=== PATIENT | female | born 1960 | race African-American/Black ===

== ENCOUNTER 2017-02-17 22:43 | Emergency (ER) | payer MEDICARE ==
[~2017-02-17] VITALS: Ht 162.6 cm; Wt 49.9 kg
[2017-02-17 23:35] LABS: Basophils # (auto) 0.1 uL; Basophils % (auto) 0.8 % (0.0-2.0); CONDITION Y; Eosinophils # (auto) 0.1 uL; Hematocrit 34.6 % (36.0-46.0); Hemoglobin 11.6 g/dL (12.2-16.2); Lymphocytes # (auto) 2.4 uL; Lymphocytes % (auto) 35.8 % (10.0-50.0); Mean Corpuscular Hemoglobin 28.2 pg (28.0-32.0); Mean Corpuscular Hgb Conc. 33.5 g/dL (32.0-36.0); Mean Platelet Volume 7.2 fL (7.4-10.4); Monocytes # (auto) 0.3 uL; Monocytes % (auto) 5.3 % (0.0-12.0); Neutrophils # (auto) 3.8 uL; Neutrophils % (auto) 57.1 % (37.0-80.0); Platelet Count (auto) 433 10^3/uL (140-450); Red Cell Distribution Width 13.3 % (11.6-16.0); White Blood Cell 6.6 10^3/uL (4.4-10.8)
[2017-02-17 23:54] LABS: Albumin 3.7 g/dL (3.4-5.0); Amylase 145 U/L (25-115); Anion Gap 10 (5-15); Aspartate Aminotransferase 19 U/L (15-37); BUN/Creatinine Ratio 17.7; Blood Urea Nitrogen 17 mg/dL (7-18); Calcium 9.9 mg/dL (8.5-10.1); Carbon Dioxide 25 mmol/L (21-32); Chloride 104 mmol/L (98-107); GFR African American 78 mL/min; GFR Non-African American 64 mL/min; Glucose 148 mg/dL (74-106); Magnesium 1.7 mg/dL (1.6-2.6); Potassium 3.6 mmol/L (3.5-5.1); Sodium 139 mmol/L (136-145)
[2017-02-17 23:56] LABS: Lactic Acid w/Reflex 2.3 mmol/L (0.4-2.0)
[2017-02-17 23:57] LABS: INR 0.95 (0.9-1.15); Prothrombin Time 10.3 sec (9.37-12.3)
[2017-02-17 23:59] LABS: Alkaline Phosphatase 74 U/L (45-117); Bilirubin, Total 0.3 mg/dL (0.2-1.0); Total Protein 9.7 g/dL (6.4-8.2)
[2017-02-18] MEDS ORDERED: NALBUPHINE HCL 10 MG/1ml INJECTION IV ONE
[2017-02-18 00:03] LABS: REFLEX LACTIC ACID YES OR NO YES
[2017-02-18] MEDS ORDERED: ONDANSETRON HCL 4 MG/2 ML VIAL IV ONE ×2 (00:15→00:30)
[2017-02-18] MEDS ORDERED: MORPHINE SULF INJ 2 MG/ML SYRINGE 1ML IV ONE (00:15)
[2017-02-18] MEDS ORDERED: SODIUM CHLORIDE 0.9% 1,000 ML IV ONE (00:30)
[2017-02-18] MEDS ORDERED: HYDROmorphone HCL 2 MG/ML VL IV ONE (00:30)
[2017-02-18 00:36] LABS: Urine Bilirubin Negative (Negative); Urine Blood Negative /uL (Negative); Urine Color Yellow (Yellow); Urine Glucose 3+ mg/dL (Normal); Urine Ketone Negative (Negative); Urine Nitrite Negative (Negative); Urine RBC 1 /hpf (0 - 4); Urine Squamous Epithelial Cell FEW /hpf (<5); Urine Urobilinogen Normal (Negative); Urine pH 8.5 (5.0-8.0)
[2017-02-18] MEDS ORDERED: LORazepam 2MG/ML-1ML VIAL IV ONE (01:30)
[2017-02-18 03:38] VITALS: BP 132/89
== END 2017-02-18 03:56 | disposition home or self-care (01) ==
LOC: ER 22:46
DX: K29.70 Gastritis, unspecified, without bleeding (principal); I10 Essential (primary) hypertension; E11.9 Type 2 diabetes mellitus without complications; F17.210 Nicotine dependence, cigarettes, uncomplicated
CPT/HCPCS: 36415; 51702; 71010; 74176; 80053; 80307; 81001; 82150; 83605; 83690; 83735; 84484; 85025; 85610; 85730; 87040; 93005; 96361; 96374; 96375; 99285; J1170; J2060; J2270; J2300; J2405; J7030

== ENCOUNTER 2017-04-10 23:34 | Inpatient (IN) | payer MEDICARE ==
[~2017-04-10] VITALS: Ht 162.6 cm; Wt 49.4 kg
[2017-04-11 00:25] LABS: Basophils # (auto) 0.1 uL; Basophils % (auto) 1.1 % (0.0-2.0); Eosinophils # (auto) 0 uL; Hematocrit 37.7 % (36.0-46.0); Hemoglobin 12.5 g/dL (12.2-16.2); Lymphocytes # (auto) 1.4 uL; Lymphocytes % (auto) 25.7 % (10.0-50.0); Mean Corpuscular Hgb Conc. 33.2 g/dL (32.0-36.0); Mean Corpuscular Volume 84.1 fL (80.0-100.0); Mean Platelet Volume 7.1 fL (6.9-10.8); Monocytes # (auto) 0.1 uL; Monocytes % (auto) 1.9 % (0.0-12.0); Neutrophils % (auto) 71.3 % (37.0-80.0); Nucleated Red Blood Cells % 0.1 %; Platelet Count (auto) 357 10^3/uL (140-450); Red Cell Distribution Width 13.6 % (11.8-14.3); White Blood Cell 5.6 10^3/uL (4.4-10.8)
[2017-04-11 00:42] LABS: Albumin 3.7 g/dL (3.4-5.0); BUN/Creatinine Ratio 20.6; Calcium 9.8 mg/dL (8.5-10.1); Magnesium 2.1 mg/dL (1.6-2.6)
[2017-04-11 00:45] LABS: Bilirubin, Total 0.3 mg/dL (0.2-1.0); Total Protein 9.5 g/dL (6.4-8.2)
[2017-04-11] MEDS ORDERED: NALBUPHINE HCL 10 MG/1ml INJECTION IV ONE (04:30)
[2017-04-11] MEDS ORDERED: ONDANSETRON HCL 4 MG/2 ML VIAL IV ONE (04:30)
[2017-04-11] MEDS ORDERED: DOCUSATE SOD 100 MG CAP PO PRN (06:15)
[2017-04-11] MEDS ORDERED: SODIUM CHLORIDE 0.9% 1,000 ML IV ONE (06:15)
[2017-04-11] MEDS ORDERED: PANTOPRAZOLE 40 MG/10 ML VIAL IV ONE (06:15)
[2017-04-11] MEDS ORDERED: DEXTROSE (50%) 50ML SYRG IV PRN (06:15)
[2017-04-11] MEDS: SODIUM CHLORIDE 0.9% 1,000 ML IV SCH ×2 (06:30→17:44)
[2017-04-11] MEDS: LISINOPRIL 10 MG TAB PO SCH ×2 (06:41→10:47)
[2017-04-11 07:15] VITALS: BP 161/93
[2017-04-11] MEDS: ACETAMINOPHEN 325 MG TAB PO PRN (07:27)
[2017-04-11] MEDS ORDERED: FAMO-12 (07:31)
[2017-04-11] MEDS ORDERED: DICY20TA66 (07:31)
[2017-04-11] MEDS ORDERED: LISI10TA6 (07:31)
[2017-04-11] MEDS ORDERED: SIMV-8 (07:31)
[2017-04-11] MEDS ORDERED: GLIP-116 (07:31)
[2017-04-11] MEDS ORDERED: METF-372 (07:31)
[2017-04-11] MEDS ORDERED: LABETALOL HCL 5 MG/ML 4ML SYRINGE IV PRN (08:30)
[2017-04-11] MEDS ORDERED: INSULIN DETEMIR(LEVEMIR) 1unit/0.01ml Soln (100units/ml) SC ONE (10:00)
[2017-04-11] MEDS ORDERED: glipiZIDE 5 MG TAB PO ONE (10:00)
[2017-04-11] MEDS ORDERED: cefTRIAXone 1GM/50ML D5W 50 ML IV ONE (10:00)
[2017-04-11] MEDS: ENOXAPARIN SOD 40 MG/0.4 ML SYRINGE SC SCH (10:47)
[2017-04-11 10:57] VITALS: BP 154/93
[2017-04-11 11:02] LABS: Urine Bilirubin Negative (Negative); Urine Blood Negative /uL (Negative); Urine Color Yellow (Yellow); Urine Glucose 4+ mg/dL (Normal); Urine Ketone 2+ (Negative); Urine Nitrite POSITIVE (Negative); Urine RBC 4 /hpf (0 - 4); Urine Squamous Epithelial Cell FEW /hpf (<5); Urine Urobilinogen Normal (Negative); Urine pH 5.5 (5.0-8.0)
[2017-04-11] MEDS: InsuLIN REG 1unit/0.01ml Soln (100units/ml) SC SCH ×2 (13:31→17:44)
[2017-04-11] MEDS: ACCU-CHEK COMFORT CURVE STRIP VI SCH ×2 (13:31→17:43)
[2017-04-11 16:17] VITALS: BP 117/78
[2017-04-11 20:00] VITALS: BP 149/88
[2017-04-11] MEDS: ONDANSETRON HCL 4 MG/2 ML VIAL IV PRN (21:02)
[2017-04-11] MEDS: MORPHINE SULF INJ 2 MG/ML SYRINGE 1ML IV PRN (21:08)
[2017-04-12] MEDS: ACCU-CHEK COMFORT CURVE STRIP VI SCH ×4 (00:27→17:30)
[2017-04-12] MEDS: ONDANSETRON HCL 4 MG/2 ML VIAL IV PRN (02:40)
[2017-04-12] MEDS: MORPHINE SULF INJ 2 MG/ML SYRINGE 1ML IV PRN ×2 (04:29→17:41)
[2017-04-12 05:29] VITALS: BP 171/104
[2017-04-12] MEDS: InsuLIN REG 1unit/0.01ml Soln (100units/ml) SC SCH ×4 (06:00→17:31)
[2017-04-12] MEDS: ACETAMINOPHEN 325 MG TAB PO PRN (06:17)
[2017-04-12 06:24] LABS: Basophils # (auto) 0 uL; Basophils % (auto) 0.6 % (0.0-2.0); Eosinophils # (auto) 0 uL; Eosinophils % (auto) 0.1 % (0.0-7.0); Hematocrit 35.3 % (36.0-46.0); Lymphocytes # (auto) 2.7 uL; Lymphocytes % (auto) 35.6 % (10.0-50.0); Mean Corpuscular Hemoglobin 28.5 pg (28.0-32.0); Mean Corpuscular Hgb Conc. 34.1 g/dL (32.0-36.0); Mean Corpuscular Volume 83.4 fL (80.0-100.0); Mean Platelet Volume 7.1 fL (6.9-10.8); Monocytes # (auto) 0.4 uL; Monocytes % (auto) 5.4 % (0.0-12.0); Neutrophils # (auto) 4.4 uL; Neutrophils % (auto) 58.3 % (37.0-80.0); Platelet Count (auto) 366 10^3/uL (140-450); Red Cell Distribution Width 13.3 % (11.8-14.3); White Blood Cell 7.5 10^3/uL (4.4-10.8)
[2017-04-12 06:45] LABS: Albumin 3.4 g/dL (3.4-5.0); Calcium 9.1 mg/dL (8.5-10.1); Potassium 3.3 mmol/L (3.5-5.1)
[2017-04-12 06:47] LABS: Bilirubin, Total 0.3 mg/dL (0.2-1.0); Total Protein 8.6 g/dL (6.4-8.2)
[2017-04-12] MEDS: INSULIN DETEMIR(LEVEMIR) 1unit/0.01ml Soln (100units/ml) SC SCH (07:00)
[2017-04-12] MEDS: glipiZIDE 5 MG TAB PO SCH (07:00)
[2017-04-12] MEDS ORDERED: FAMOTIDINE 20 MG TAB PO ONE (08:30)
[2017-04-12] MEDS: SODIUM CHLORIDE 0.9% 1,000 ML IV SCH ×2 (08:35→22:30)
[2017-04-12] MEDS: cefTRIAXone 1GM/50ML D5W 50 ML IV SCH (09:02)
[2017-04-12 09:53] VITALS: BP 158/91
[2017-04-12] MEDS: ENOXAPARIN SOD 40 MG/0.4 ML SYRINGE SC SCH (10:00)
[2017-04-12] MEDS: LISINOPRIL 10 MG TAB PO SCH (10:17)
[2017-04-12] MEDS: PANTOPRAZOLE 40 MG/10 ML VIAL IV SCH (10:18)
[2017-04-12] MEDS: HYDROcodone-ACET 5/325MG TAB PO PRN (11:48)
[2017-04-12 12:14] VITALS: BP 165/88
[2017-04-12 16:12] VITALS: BP 185/117
[2017-04-12] MEDS: MILK OF MAGNESIA 30ML SUSP PO PRN (17:40)
[2017-04-12] MEDS: NICOTINE 21MG/24 HR TOPICAL PATCH TD SCH (17:41)
[2017-04-12] MEDS: Boost Glucose Control 8 Ounces PO SCH (17:42)
[2017-04-12] MEDS: PROMETHAZINE HCL 25 MG/ML 1ML IV PRN (20:32)
[2017-04-12] MEDS: TEMAZEPAM 15 MG CAP PO PRN (20:42)
[2017-04-12 22:00] VITALS: BP 173/103
[2017-04-13] MEDS: ACCU-CHEK COMFORT CURVE STRIP VI SCH ×4 (00:21→17:23)
[2017-04-13] MEDS: InsuLIN REG 1unit/0.01ml Soln (100units/ml) SC SCH ×4 (00:25→17:23)
[2017-04-13 05:00] VITALS: BP 146/102
[2017-04-13] MEDS: MORPHINE SULF INJ 2 MG/ML SYRINGE 1ML IV PRN ×4 (06:15→20:09)
[2017-04-13 06:25] LABS: INR 0.95 (0.9-1.15); Prothrombin Time 10.4 sec (9.37-12.3)
[2017-04-13 06:30] LABS: Basophils # (auto) 0.1 uL; Basophils % (auto) 0.7 % (0.0-2.0); Eosinophils # (auto) 0 uL; Eosinophils % (auto) 0.6 % (0.0-7.0); Hemoglobin 12.2 g/dL (12.2-16.2); Lymphocytes # (auto) 3.7 uL; Lymphocytes % (auto) 45.9 % (10.0-50.0); Mean Corpuscular Hemoglobin 28.6 pg (28.0-32.0); Mean Corpuscular Volume 84.2 fL (80.0-100.0); Monocytes # (auto) 0.8 uL; Monocytes % (auto) 9.6 % (0.0-12.0); Neutrophils # (auto) 3.5 uL; Neutrophils % (auto) 43.2 % (37.0-80.0); Nucleated Red Blood Cells % 0.1 %; Platelet Count (auto) 378 10^3/uL (140-450); Red Cell Distribution Width 13.4 % (11.8-14.3)
[2017-04-13 06:37] LABS: Albumin 3.1 g/dL (3.4-5.0); Calcium 8.7 mg/dL (8.5-10.1); Magnesium 2.7 mg/dL (1.6-2.6); Potassium 3.6 mmol/L (3.5-5.1)
[2017-04-13 06:39] LABS: BUN/Creatinine Ratio 22.7
[2017-04-13 06:41] LABS: Bilirubin, Total 0.4 mg/dL (0.2-1.0); Total Protein 7.7 g/dL (6.4-8.2)
[2017-04-13] MEDS: INSULIN DETEMIR(LEVEMIR) 1unit/0.01ml Soln (100units/ml) SC SCH (06:58)
[2017-04-13] MEDS: PROMETHAZINE HCL 25 MG/ML 1ML IV PRN ×2 (06:59→14:50)
[2017-04-13] MEDS: glipiZIDE 5 MG TAB PO SCH (07:00)
[2017-04-13] MEDS: cefTRIAXone 1GM/50ML D5W 50 ML IV SCH (09:43)
[2017-04-13] MEDS: PANTOPRAZOLE 40 MG/10 ML VIAL IV SCH ×2 (09:45→21:27)
[2017-04-13] MEDS: NICOTINE 21MG/24 HR TOPICAL PATCH TD SCH (09:45)
[2017-04-13] MEDS: LISINOPRIL 10 MG TAB PO SCH (09:46)
[2017-04-13] MEDS: FAMOTIDINE 20 MG TAB PO SCH (09:46)
[2017-04-13] MEDS: Boost Glucose Control 8 Ounces PO SCH ×3 (09:46→17:24)
[2017-04-13] MEDS: ENOXAPARIN SOD 40 MG/0.4 ML SYRINGE SC SCH (09:47)
[2017-04-13 10:10] VITALS: BP 153/97
[2017-04-13] MEDS: SODIUM CHLORIDE 0.9% 1,000 ML IV SCH (10:52)
[2017-04-13 12:18] VITALS: BP 137/89
[2017-04-13 16:14] VITALS: BP 145/96
[2017-04-13] MEDS: MILK OF MAGNESIA 30ML SUSP PO PRN (17:12)
[2017-04-13 19:30] VITALS: BP 164/110
[2017-04-13] MEDS: ONDANSETRON HCL 4 MG/2 ML VIAL IV PRN (20:44)
[2017-04-13] MEDS: TEMAZEPAM 15 MG CAP PO PRN (21:28)
[2017-04-13 22:00] VITALS: BP 164/110
[2017-04-14] MEDS: SODIUM CHLORIDE 0.9% 1,000 ML IV SCH ×2 (00:55→14:44)
[2017-04-14] MEDS: InsuLIN REG 1unit/0.01ml Soln (100units/ml) SC SCH ×5 (01:05→23:25)
[2017-04-14] MEDS: MORPHINE SULF INJ 2 MG/ML SYRINGE 1ML IV PRN ×4 (03:18→23:24)
[2017-04-14 05:00] VITALS: BP 141/96
[2017-04-14 05:59] LABS: Basophils # (auto) 0 uL; Basophils % (auto) 0.5 % (0.0-2.0); Eosinophils # (auto) 0.1 uL; Eosinophils % (auto) 0.9 % (0.0-7.0); Hematocrit 37.2 % (36.0-46.0); Hemoglobin 12.3 g/dL (12.2-16.2); Lymphocytes # (auto) 3.7 uL; Mean Corpuscular Hemoglobin 28.1 pg (28.0-32.0); Mean Corpuscular Hgb Conc. 33.1 g/dL (32.0-36.0); Mean Corpuscular Volume 84.8 fL (80.0-100.0); Mean Platelet Volume 6.7 fL (6.9-10.8); Monocytes # (auto) 0.8 uL; Monocytes % (auto) 9.5 % (0.0-12.0); Neutrophils # (auto) 3.3 uL; Neutrophils % (auto) 42.1 % (37.0-80.0); Nucleated Red Blood Cells % 0.1 %; Platelet Count (auto) 366 10^3/uL (140-450); Red Cell Distribution Width 13.3 % (11.8-14.3); White Blood Cell 7.9 10^3/uL (4.4-10.8)
[2017-04-14] MEDS: ACCU-CHEK COMFORT CURVE STRIP VI SCH ×5 (06:00→23:25)
[2017-04-14] MEDS: HYDROcodone-ACET 5/325MG TAB PO PRN (06:00)
[2017-04-14 06:07] LABS: INR 0.96 (0.9-1.15); Prothrombin Time 10.5 sec (9.37-12.3)
[2017-04-14] MEDS: glipiZIDE 5 MG TAB PO SCH (06:11)
[2017-04-14] MEDS: INSULIN DETEMIR(LEVEMIR) 1unit/0.01ml Soln (100units/ml) SC SCH (06:11)
[2017-04-14 06:21] LABS: Potassium 3.8 mmol/L (3.5-5.1)
[2017-04-14 06:27] LABS: Bilirubin, Total 0.3 mg/dL (0.2-1.0); Calcium 8.5 mg/dL (8.5-10.1); Magnesium 2.4 mg/dL (1.6-2.6); Total Protein 7.5 g/dL (6.4-8.2)
[2017-04-14] MEDS: ONDANSETRON HCL 4 MG/2 ML VIAL IV PRN (06:30)
[2017-04-14] MEDS: Boost Glucose Control 8 Ounces PO SCH ×3 (08:00→18:13)
[2017-04-14] MEDS: cefTRIAXone 1GM/50ML D5W 50 ML IV SCH (09:17)
[2017-04-14] MEDS: PANTOPRAZOLE 40 MG/10 ML VIAL IV SCH (09:17)
[2017-04-14] MEDS: LISINOPRIL 10 MG TAB PO SCH (09:18)
[2017-04-14] MEDS: FAMOTIDINE 20 MG TAB PO SCH (09:18)
[2017-04-14] MEDS: ENOXAPARIN SOD 40 MG/0.4 ML SYRINGE SC SCH (09:18)
[2017-04-14] MEDS: NICOTINE 21MG/24 HR TOPICAL PATCH TD SCH (09:18)
[2017-04-14] MEDS ORDERED: MORP30TA39 PO (09:34)
[2017-04-14] MEDS ORDERED: CYCLOBENZAPRINE HCL 10 MG TAB PO PRN (11:15)
[2017-04-14] MEDS ORDERED: MORPHINE SULF INJ 2 MG/ML SYRINGE 1ML IV ONE (11:15)
[2017-04-14 11:20] VITALS: BP 130/105
[2017-04-14] MEDS ORDERED: MORPHINE SULFATE 10 MG/5 ML ORAL SOLN PO SCH (12:00)
[2017-04-14] MEDS ORDERED: PROPOFOL 10 MG/ML 20 ML IV ONE (12:39)
[2017-04-14] MEDS ORDERED: LIDOCAINE HCL 2 %PF INJ 10ML AMP IJ ONE (12:39)
[2017-04-14] MEDS ORDERED: ONDANSETRON HCL 4 MG/2 ML VIAL IV ONE (13:00)
[2017-04-14] MEDS: hydrALAZINE HCL 20 MG/ML VL ONE ×5 (13:22→13:50)
[2017-04-14] MEDS: HYDROmorphone HCL 2 MG/ML VL IV PRN ×2 (13:38→13:41)
[2017-04-14] MEDS ORDERED: SUC1LQ PO (14:28)
[2017-04-14] MEDS ORDERED: PANT40T PO (14:28)
[2017-04-14 17:38] VITALS: BP 114/52
[2017-04-14] MEDS ORDERED: MORPHINE SULF 30 mg ER tab PO SCH ×3 (18:00)
[2017-04-14] MEDS: SUCRALFATE 1 GM/10 ML ORAL SUSP PO SCH (18:14)
[2017-04-14] MEDS: MORPHINE SULFATE 10 MG/5 ML ORAL SOLN PO SCH ×2 (18:45→22:00)
[2017-04-14 22:00] VITALS: BP 94/53
[2017-04-14] MEDS: PANTOPRAZOLE 40 MG TAB PO SCH (22:03)
[2017-04-14] MEDS: TEMAZEPAM 15 MG CAP PO PRN (22:05)
[2017-04-15] VITALS (7 sets, daily range): BP systolic 85–167; BP diastolic 57–83
[2017-04-15] MEDS: SODIUM CHLORIDE 0.9% 1,000 ML IV SCH ×2 (03:20→16:55)
[2017-04-15] MEDS: MORPHINE SULFATE 10 MG/5 ML ORAL SOLN PO SCH ×4 (05:48→22:35)
[2017-04-15] MEDS: ACCU-CHEK COMFORT CURVE STRIP VI SCH ×3 (05:49→18:00)
[2017-04-15] MEDS: InsuLIN REG 1unit/0.01ml Soln (100units/ml) SC SCH ×3 (05:53→18:00)
[2017-04-15] MEDS: MORPHINE SULF INJ 2 MG/ML SYRINGE 1ML IV PRN ×3 (06:07→20:15)
[2017-04-15] MEDS: SUCRALFATE 1 GM/10 ML ORAL SUSP PO SCH ×3 (06:35→18:01)
[2017-04-15] MEDS: INSULIN DETEMIR(LEVEMIR) 1unit/0.01ml Soln (100units/ml) SC SCH (06:35)
[2017-04-15] MEDS: glipiZIDE 5 MG TAB PO SCH (06:35)
[2017-04-15] MEDS: Boost Glucose Control 8 Ounces PO SCH ×3 (08:18→18:01)
[2017-04-15] MEDS: cefTRIAXone 1GM/50ML D5W 50 ML IV SCH (09:52)
[2017-04-15] MEDS: PANTOPRAZOLE 40 MG TAB PO SCH ×2 (09:52→22:34)
[2017-04-15] MEDS: NICOTINE 21MG/24 HR TOPICAL PATCH TD SCH (10:00)
[2017-04-15] MEDS: LISINOPRIL 10 MG TAB PO SCH (10:00)
[2017-04-15] MEDS: ENOXAPARIN SOD 40 MG/0.4 ML SYRINGE SC SCH (10:00)
[2017-04-15] MEDS ORDERED: FLUCONAZOLE 200MG/100ML 100 ML IV ONE (12:30)
[2017-04-15] MEDS: ONDANSETRON HCL 4 MG/2 ML VIAL IV PRN (20:19)
[2017-04-15] MEDS: TEMAZEPAM 15 MG CAP PO PRN (23:34)
[2017-04-16] MEDS: ACCU-CHEK COMFORT CURVE STRIP VI SCH ×5 (00:03→23:42)
[2017-04-16 04:55] VITALS: BP 162/94
[2017-04-16] MEDS ORDERED: LABETALOL HCL 5 MG/ML 4ML SYRINGE IV ONE (05:45)
[2017-04-16] MEDS: MORPHINE SULFATE 10 MG/5 ML ORAL SOLN PO SCH ×4 (06:00→22:55)
[2017-04-16] MEDS: InsuLIN REG 1unit/0.01ml Soln (100units/ml) SC SCH ×5 (06:11→23:43)
[2017-04-16] MEDS: MILK OF MAGNESIA 30ML SUSP PO PRN (06:13)
[2017-04-16] MEDS: ONDANSETRON HCL 4 MG/2 ML VIAL IV PRN (06:28)
[2017-04-16] MEDS: MORPHINE SULF INJ 2 MG/ML SYRINGE 1ML IV PRN (06:28)
[2017-04-16] MEDS: glipiZIDE 5 MG TAB PO SCH (06:29)
[2017-04-16] MEDS: INSULIN DETEMIR(LEVEMIR) 1unit/0.01ml Soln (100units/ml) SC SCH (06:29)
[2017-04-16] MEDS: SUCRALFATE 1 GM/10 ML ORAL SUSP PO SCH ×3 (06:29→18:40)
[2017-04-16] MEDS: SODIUM CHLORIDE 0.9% 1,000 ML IV SCH ×2 (06:30→22:54)
[2017-04-16] MEDS: Boost Glucose Control 8 Ounces PO SCH ×3 (08:00→18:00)
[2017-04-16 09:00] VITALS: BP 100/65
[2017-04-16] MEDS: NICOTINE 21MG/24 HR TOPICAL PATCH TD SCH (09:46)
[2017-04-16] MEDS: cefTRIAXone 1GM/50ML D5W 50 ML IV SCH (09:47)
[2017-04-16] MEDS: LISINOPRIL 10 MG TAB PO SCH (09:50)
[2017-04-16] MEDS: PANTOPRAZOLE 40 MG TAB PO SCH ×2 (09:50→22:53)
[2017-04-16] MEDS: ENOXAPARIN SOD 40 MG/0.4 ML SYRINGE SC SCH (09:50)
[2017-04-16] MEDS: FLUCONAZOLE 200MG/100ML 100 ML IV SCH (12:00)
[2017-04-16 13:00] VITALS: BP 76/51
[2017-04-16 17:00] VITALS: BP_DIAS 62
[2017-04-16 22:00] VITALS: BP 148/93
[2017-04-17 05:00] VITALS: BP 110/70
[2017-04-17] MEDS: ACCU-CHEK COMFORT CURVE STRIP VI SCH ×3 (06:00→17:43)
[2017-04-17] MEDS: InsuLIN REG 1unit/0.01ml Soln (100units/ml) SC SCH ×3 (06:00→17:43)
[2017-04-17] MEDS: glipiZIDE 5 MG TAB PO SCH (06:58)
[2017-04-17] MEDS: SUCRALFATE 1 GM/10 ML ORAL SUSP PO SCH ×3 (06:59→17:42)
[2017-04-17] MEDS: MORPHINE SULFATE 10 MG/5 ML ORAL SOLN PO SCH ×4 (06:59→21:40)
[2017-04-17] MEDS: INSULIN DETEMIR(LEVEMIR) 1unit/0.01ml Soln (100units/ml) SC SCH (06:59)
[2017-04-17 08:00] VITALS: BP 134/82
[2017-04-17] MEDS: Boost Glucose Control 8 Ounces PO SCH ×3 (08:04→17:43)
[2017-04-17] MEDS: cefTRIAXone 1GM/50ML D5W 50 ML IV SCH (08:56)
[2017-04-17] MEDS: SODIUM CHLORIDE 0.9% 1,000 ML IV SCH (08:56)
[2017-04-17 09:00] VITALS: BP 134/82
[2017-04-17] MEDS: FLUCONAZOLE 200MG/100ML 100 ML IV SCH (10:04)
[2017-04-17] MEDS: PANTOPRAZOLE 40 MG TAB PO SCH ×2 (10:04→21:40)
[2017-04-17] MEDS: ENOXAPARIN SOD 40 MG/0.4 ML SYRINGE SC SCH (10:04)
[2017-04-17] MEDS: LISINOPRIL 10 MG TAB PO SCH (10:04)
[2017-04-17] MEDS: NICOTINE 21MG/24 HR TOPICAL PATCH TD SCH (10:05)
[2017-04-17] MEDS ORDERED: LEVOFLOXACIN 500MG 100 ML IV ONE (11:15)
[2017-04-17 13:00] VITALS: BP 88/62
[2017-04-17 17:26] VITALS: BP 118/76
[2017-04-17] MEDS: metFORMIN HYDROCHLORIDE 500 MG TAB PO SCH (17:42)
[2017-04-17 22:00] VITALS: BP 141/81
[2017-04-17] MEDS: TEMAZEPAM 15 MG CAP PO PRN (22:03)
[2017-04-18] MEDS: InsuLIN REG 1unit/0.01ml Soln (100units/ml) SC SCH ×3 (00:47→12:00)
[2017-04-18] MEDS: ACCU-CHEK COMFORT CURVE STRIP VI SCH ×3 (00:47→12:00)
[2017-04-18 05:00] VITALS: BP 92/63
[2017-04-18] MEDS: MORPHINE SULFATE 10 MG/5 ML ORAL SOLN PO SCH ×2 (05:14→12:00)
[2017-04-18] MEDS: SUCRALFATE 1 GM/10 ML ORAL SUSP PO SCH ×3 (05:15→17:00)
[2017-04-18] MEDS: metFORMIN HYDROCHLORIDE 500 MG TAB PO SCH (05:16)
[2017-04-18] MEDS: INSULIN DETEMIR(LEVEMIR) 1unit/0.01ml Soln (100units/ml) SC SCH (05:32)
[2017-04-18] MEDS: glipiZIDE 5 MG TAB PO SCH (05:32)
[2017-04-18] MEDS: Boost Glucose Control 8 Ounces PO SCH ×2 (08:00→12:00)
[2017-04-18] MEDS: FLUCONAZOLE 200MG/100ML 100 ML IV SCH (09:25)
[2017-04-18] MEDS: NICOTINE 21MG/24 HR TOPICAL PATCH TD SCH (09:25)
[2017-04-18] MEDS: ENOXAPARIN SOD 40 MG/0.4 ML SYRINGE SC SCH ×2 (09:26→09:35)
[2017-04-18] MEDS: PANTOPRAZOLE 40 MG TAB PO SCH (09:26)
[2017-04-18] MEDS: LISINOPRIL 10 MG TAB PO SCH (09:27)
[2017-04-18 09:58] VITALS: BP 105/67
[2017-04-18] MEDS ORDERED: LEVOFLOXACIN 500MG 100 ML IV SCH (10:00)
[2017-04-18 14:50] VITALS: BP 80/49
[2017-04-18 17:28] VITALS: BP 124/73
== END 2017-04-18 18:00 | disposition home health service (06) | DRG 438 ==
LOC: ER 23:37 → OVERFLOW 23:38 → EAST 04-11 07:06 → TELE-EAST 04-12 14:04 → EAST 04-17 12:57
PROVIDERS: ADMIT Internal Medicine; ATTEND Internal Medicine
PROC: 0DB68ZX Excision of Stomach, Via Natural or Artificial Opening Endoscopic, Diagnostic (ICD-10-PCS; principal; 2017-04-14 12:42)
DX: Q45.3 Other congenital malformations of pancreas and pancreatic duct (principal); N17.0 Acute kidney failure with tubular necrosis; E11.22 Type 2 diabetes mellitus with diabetic chronic kidney disease; F11.20 Opioid dependence, uncomplicated; E11.65 Type 2 diabetes mellitus with hyperglycemia; N31.9 Neuromuscular dysfunction of bladder, unspecified; N39.0 Urinary tract infection, site not specified; K29.70 Gastritis, unspecified, without bleeding; N18.3 Chronic kidney disease, stage 3 (moderate); F12.90 Cannabis use, unspecified, uncomplicated; G89.29 Other chronic pain; F17.210 Nicotine dependence, cigarettes, uncomplicated; K21.9 Gastro-esophageal reflux disease without esophagitis; I12.9 Hypertensive chronic kidney disease with stage 1 through stage 4 chronic kidney disease, or unspecified chronic kidney disease; K59.00 Constipation, unspecified; Z91.19 Patient's noncompliance with other medical treatment and regimen
CPT/HCPCS: 36415; 43239; 71010; 74176; 80053; 80307; 81001; 82962; 83036; 83735; 85025; 85610; 87045; 87081; 87086; 87088; 87186; 87899; 93005; 96374; 96375; 97116; 97163; 97530; C9113; J0696; J1450; J1815; J1956; J2405; J2704; J3490